=== PATIENT | female | born 1930 | race Caucasian/White ===

== ENCOUNTER 2017-04-12 14:38 | Emergency (ER) | payer OTHER, BC ==
[~2017-04-12] VITALS: Ht 165.1 cm; Wt 50.0 kg
[~2017-04-12 14:38] MED LIST: ADVAIR 250/501 DISK IH; ALPRAZOLAM0.25 M2; ALPRAZOLAM0.25 M2 PO; ALPRAZOLAM0.5 MG PO; BUSPAR5 MG PO; BUSPIRONE HCL5 MG PO; CENTRUM SILVER1 EAC3 PO; CLINORIL150 MG PO; COMBIVENT RESPIM4 GM IH; LEVAQUIN500 MG PO; LEXAPRO10 MG PO; LEXAPRO5 MG PO; LIDODERM 5% P1 PATCH TD; LO-DOSE ASPIRIN81 M1 PO; MYSOLINE50 MG PO; NO MEDS; ONE-A-DAY ESSE1 EAC1 PO; PERCOCET 5/31 TABLET PO; PRAVASTATIN SOD40 MG PO; PREDNISONE20 MG PO; PROAIR HFA8.5 GM IH; PROTONIX20 MG PO; PROTONIX40 MG PO; RESTASIS 01 DROP/0.4 BOTH EYES; SPIRIVA1 INHALATI IH; TOBRAMYCIN SULFA5 ML LEFT EYE; TRAMADOL HCL50 MG PO; TRAZODONE HCL50 MG PO; TYLENOL 8 HOUR650 MG PO; TYLENOL EXTRA500 MG PO; TYLENOL REGULA325 MG PO; XANAX0.5 MG PO
[2017-04-12 16:07] VITALS: BP 137/60
== END 2017-04-12 16:08 | disposition home or self-care (01) ==
LOC: EME 14:38
DX: S40.021A Contusion of right upper arm, initial encounter (principal); M25.511 Pain in right shoulder; M25.521 Pain in right elbow; W18.30XA Fall on same level, unspecified, initial encounter; M19.031 Primary osteoarthritis, right wrist; M75.31 Calcific tendinitis of right shoulder; E78.5 Hyperlipidemia, unspecified; J44.9 Chronic obstructive pulmonary disease, unspecified; F17.200 Nicotine dependence, unspecified, uncomplicated
CPT/HCPCS: 73030; 73060; 73080; 73090; 73110; 99281; 99284; J3010